=== PATIENT | female | born 1945 | race Caucasian/White ===

== ENCOUNTER 2017-11-29 15:34 | Emergency (ER) | payer OTHER, MEDICAID ==
[~2017-11-29] VITALS: Ht 160 cm; Wt 108.4 kg
[2017-11-29 16:21] VITALS: Ht 160 cm; Wt 108.4 kg
[2017-11-29 17:25] VITALS: BP 163/93
== END 2017-11-29 18:54 | disposition home or self-care (01) ==
LOC: ED 15:34
DX: J20.9 Acute bronchitis, unspecified (principal); I10 Essential (primary) hypertension
CPT/HCPCS: J7512; J7613; J7644